=== PATIENT | male | born 1980 | race African-American/Black ===

== ENCOUNTER 2016-10-08 02:27 | Emergency (ER) | payer OTHER ==
--- NOTE | ~2016-10-08 | EKG ---
PATIENT: SUGAR JAUREGUI UNIT #: [id number] Ventricular Rate: 84 BPM Atrial Rate: 84 BPM P-R Interval: 146 ms QRS Duration: 70 ms Q-T Interval: 350 ms QTC Calculation(Bezet): 413 ms P [place]: 21 degrees Calculated R [place]: 26 degrees Calculated T [place]: 11 degrees Diagnosis Line: Normal sinus rhythm Diagnosis Line: Cannot rule out Septal infarct , age undetermined Diagnosis Line: Borderline ECG Diagnosis Line: No previous ECGs available Diagnosis Line: Confirmed by JOSÉ LUIS GARCIA MD ([id number]) on 10/08/2016 Diagnosis Line: 10:12:09 PM INTERPRETING MD: JOSE CROWLEY
--- NOTE | ~2016-10-08 | EKG ---
PATIENT: SUGAR JAUREGUI UNIT #: [id number] Ventricular Rate: 55 BPM Atrial Rate: 55 BPM P-R Interval: 144 ms QRS Duration: 98 ms Q-T Interval: 424 ms QTC Calculation(Bezet): 405 ms P [place]: 27 degrees Calculated R [place]: 61 degrees Calculated T [place]: 20 degrees Diagnosis Line: Sinus bradycardia with sinus arrhythmia Diagnosis Line: Nonspecific ST and T wave abnormality Diagnosis Line: Abnormal ECG Diagnosis Line: No previous ECGs available Diagnosis Line: Confirmed by JOSÉ LUIS GARCIA MD ([id number]) on 10/08/2016 Diagnosis Line: 10:14:04 PM INTERPRETING MD: JOSE CROWLEY
--- NOTE | ~2016-10-08 | CR63 ---
[facility] A Service of [facility] [place] [facility] & [facility] RADIOLOGY TEXT RESULTS PATIENT: SUGAR JAUREGUI LOCATION: [facility] : 78 UNIT #: [id number] AGE: [address]: Brock Mcallister MD SEX: M ORDER DR: [id number] [facility] [address] [facility] [address]. [place], [place] [address] [id number] MR#: [id number] Acc #: [id number] NAME: SUGAR JAUREGUI : 1980 SEX: M STUDY DATE/TIME: 10/08/2016 1:53 UNIT: [facility] ROOM: STUDY DESCRIPTION: CR Chest 2 View Attending Physician: Brock Mcallister M.D. Ordering Physician: Brock Mcallister M.D. Primary Care Physician: Primary Care Physician No MEDICAL IMAGING REPORT This report is preliminary unless electronic signature is present EXAM Chest x-ray, 10/08/2016 HISTORY 36-year-old male in the ED complaining of new onset chest pain and back pain beginning prior to arrival. TECHNIQUE AP and lateral upright chest series. FINDINGS The heart size and pulmonary vascularity are normal. The lungs appear clear. No visible pulmonary infiltrate or pleural effusion. No change since 10/07/2008. IMPRESSION Negative chest. Dictated by... Jose Penaloza M.D. THIS IS AN ELECTRONICALLY VERIFIED REPORT Jose Penaloza M.D. at 10/08/2016 4:07 AM Ye TD: 10/08/2016 03:50 JOB #: [id number] MEDICAL IMAGING REPORT Page 1 of 1 COPY
[2016-10-08 01:25] LABS: BASOPHIL# 0.1 X10e3 (0-0.3); BASOPHIL% 0.9 % (0-2.5); EOSINOPHIL# 0.2 X10e3 (0-0.7); EOSINOPHIL% 2.4 % (0.0-7.0); HEMATOCRIT 46.9 % (38.0-50.0); HEMOGLOBIN 15.9 gm/dL (13.0-16.0); LYMPHOCYTE# 4.7 X10e3 (1.0-3.5); LYMPHOCYTE% 50.6 % (17.0-45.0); MEAN CELL VOLUME 89.2 FL (83-96); MEAN CORPUSCULAR HEMOGLOBIN 30.2 PG (28-34); MEAN CORPUSCULAR HGB CONC 33.9 g/dL (30-36); MEAN PLATELET VOLUME 7.6 FL (6.5-11.5); MONOCYTE# 0.6 X10e3 (0-1.0); MONOCYTE% 6.2 % (3.0-12.0); NEUTROPHIL# 3.7 X10e3 (1.5-7.1); NEUTROPHIL% 39.9 % (40-75); PLATELET COUNT 241 X10e3 (140-420); RED BLOOD COUNT 5.27 X10e (3.90-5.60); RED CELL DISTRIBUTION WIDTH 14.3 % (11.0-15.5); WHITE BLOOD COUNT 9.3 X10e3 (4.0-10.5)
[2016-10-08 01:26] LABS: DIFF IND NO
[2016-10-08 01:35] LABS: POC - CKMB <1.0 ng/mL (0.0-7.9); POC - TROPONIN <0.05 ng/mL (<=0.05)
[2016-10-08 01:39] LABS: ANISOCYTOSIS SL; PLATELET ESTIMATE NORMAL (NORMAL)
[2016-10-08 01:40] LABS: DIFFERENTIAL COMMENT OCC.ATY.LYMPH; STOMATOCYTE PRESENT
[2016-10-08 01:45] LABS: ALBUMIN SERUM 4.5 g/dL (3.5-5.0); BILIRUBIN, DIRECT 0.1 mg/dL (0.0-0.2); BILIRUBIN,INDIRECT 0.2 mg/dL (0.0-0.9); BILIRUBIN,TOTAL 0.3 mg/dL (0.2-2.0); BUN/CREATININE RATIO 12.5; CALCIUM SERUM 9.4 mg/dL (8.4-10.2); CREATININE SERUM 1.2 mg/dL (0.6-1.4); POTASSIUM 3.8 mmol/L (3.5-5.1); PROTEIN TOTAL SERUM 7.4 g/dL (6.0-8.3)
[~2016-10-08 02:27] MED LIST: ALPRAZOLAM PO; ELIMITE60 GM TOP; FLEXERIL PO; VICODIN 5/500 T1 TAB PO
[2016-10-08 04:45] LABS: POC - CKMB <1.0 ng/mL (0.0-7.9); POC - TROPONIN <0.05 ng/mL (<=0.05)
== END 2016-10-08 04:50 | disposition home or self-care (01) ==
LOC: CED 02:27
PROVIDERS: Emergency Medicine
DX: R07.89 Other chest pain (principal); I10 Essential (primary) hypertension; F17.200 Nicotine dependence, unspecified, uncomplicated
CPT/HCPCS: 36415; 71020; 80048; 80076; 82553; 83880; 84484; 85025; 93005; 96374; 99284; J1885